=== PATIENT | male | born 1950 | race Caucasian/White ===

== ENCOUNTER → 2017-06-25 | Day surgery (SDC) | payer MEDICARE ==
[2017-06-24 11:57] VITALS: BMI 30.7
--- NOTE | 2017-06-24 18:57 | HP ---
HISTORY OF PRESENT ILLNESS: Mr. Estrella presents for evaluation of what really seems to be right lo wer extremity L4-L5 radiculopathy with profound foot drop on the right and some minor weakness and k nee extension. He started to have some other similar radicular pains in the left lower extremity, b ut no weakness today and he has occasional numbness in the lateral right lower extremity below the k nee. He has been evaluated by several neurosurgeons, neurologist, and pain management physician, al l of which have not been able to offer much help and feels that he has some type of undiagnosed poly neuropathy or idiopathic polyneuropathy. He has an MRI from [place] and CT, they reveals to me m ay be borderline moderate foraminal stenosis to the right at L4-L5, much lesser at L5. He does have profound foraminal stenosis at L4 on the left with some mild to moderate stenosis foraminal at L5 o n the left. He also has a CT scan from [place] that reveals far lateral disk herniation at L4 on the right, which I think does impact the exiting nerve root at that level, but should very well acc ount for some of the symptoms that he has been experiencing. PAST MEDICAL HISTORY: Coronary arterial disease, diabetes, hypertension, hyperlipidemia. CURRENT MEDICATIONS: Lisinopril, TriLipix, metformin, Crestor, Levemir, Humalog, Lyrica, clonazepam , aspirin, and ICAPS. PAST SURGICAL HISTORY: CABG x4. ALLERGIES: No known drug allergies. PHYSICAL EXAMINATION: Patient is alert and oriented x3. Gait is severely altered. He does have a profound foot drop on the right lower extremity with 3/5 strength to dorsiflexion and he is only abl e to dorsiflex about just short of neutral. His sensory exam is mostly intact. ASSESSMENT: Lumbar radiculopathy and right lower extremity weakness. PLAN: Discussed case with Dr. Arteaga who reviewed imaging and ultimately advocated for an right L4, right L5 facetectomy, foraminotomy. He explained to the patient the risks, benefits, alternatives o f the procedure. The patient expressed understanding and would like to move forward with surgery as discussed. I do believe the patient is mentally competent and capable of making medical decisions for himself and we will move forward with surgery as planned. This is Adriel Heath PA-C, dictating Femi Arteaga MD
[~2017-06-25] MED LIST: Acetaminophen/Codeine 30-300mg Tablet ONE; Bupivacaine HCl 0.5%/Epinephrine 1:200,000/PF 30 ml Vial ONE; Fentanyl 100 MCG/2 ML VIAL ONE; Glycopyrrolate 0.2 MG/ML 5 ML SYRINGE ONE; Ketorolac Tromethamine 30 MG/ML VIAL ONE; Lidocaine 2% PF 10 ML AMP (For Epidural Use) ONE; Midazolam HCl 2 mg/2 ml Vial ONE; Ondansetron HCl/PF 4 MG/2 ML Vial ONE; PHENYLEPHRINE-NS 100 MCG/ML 10 ML SYRINGE ONE; Propofol 200 MG/20 ML VIAL ONE; Sodium Chloride 0.9% 10 ML ONE; Thrombin 5000 UNITS/5 ML VIAL ONE; ePHEDrine/0.9% NaCl/PF SYRINGE 50 mg/10 ml ONE
--- OUTSIDE RECORDS SUMMARY | 2017-06-25 05:55 | XMS | Clinical Summary ---
:1950 Author Organization [facility] Address [address] [place] [id number] Phone Care Team Providers Name Role Phone , Primary Care Provider Unavailable Allergies Not on File Current Medications Not on file Active Problems Not on file Social History Tobacco Use Types Packs/Day Years Used Date Never Assessed Sex Assigned at Date Recorded Not on file Last Filed Vital Signs Not on file Plan of Treatment Not on file Results Not on filefrom Last 3 Months
[2017-06-25 06:43] LABS: Hematocrit 47.4 % (42.0-52.0); Mean Platelet Volume 8.7 fL (7.4-10.4); Red Blood Cell (RBC) Count 5.41 mill/uL (4.70-6.10); White Blood Cell (WBC) Count 8.3 thou/uL (4.8-10.8)
[2017-06-25 07:02] LABS: Anion Gap 16 mmol/L (10-20); BUN (Urea Nitrogen) 14 mg/dL (8.4-25.7); Calc. Creatinine Clearance 104 mL/min (70-130); Calcium 10.2 mg/dL (7.8-10.44); Carbon Dioxide 20 mmol/L (23-31); Chloride 103 mmol/L (98-107); Estimated GFR-MDRD 89
--- NOTE | 2017-06-25 08:54 | OP ---
DATE OF PROCEDURE: 06/25/2017 SURGEON: Femi Arteaga M.D. DIRECTOR FIXED INCOME: Adriel Heath PA-C INDICATION: Pain. DIAGNOSIS: Lumbar radiculopathy. PROCEDURE: Right L4-5 decompression, facetectomy, and foraminotomy. ANESTHESIA: General. TECHNIQUE: The patient was brought into the operating room and placed under general anesthesia. He was flipped from a supine to a prone position on the operating room table. A linear incision was p lanned over the L4-L5 segment. After prepping and draping and after an appropriate operative pause, the incision was created. The soft tissues were swept right of midline. A self-retaining retracto r was placed in the wound for optimal exposure. After confirming the appropriate level with C-arm f luoroscopy, high-speed cutting drill bit as well as 2, 3 and 4-mm Kerrisons were then used to perfor m a laminectomy and facetectomy over the exiting L4 nerve root until the L4 nerve root was well-deco mpressed. The wound was irrigated. Hemostasis was maintained throughout. The wound was then close d in anatomic layers and a pressure dressing was applied. There were no known procedural complicati ons.
--- NOTE | 2017-06-26 09:06 | EKG ---
Test Reason : PREOP Blood Pressure : / mmHG Vent. Rate : 087 BPM Atrial Rate : 087 BPM P-R Int : 156 ms QRS Dur : 100 ms QT Int : 364 ms P-R-T Axes : 026 047 042 degrees QTc Int : 438 ms Normal sinus rhythm Inferior infarct , age undetermined Possible Anterolateral infarct , age undetermined Abnormal ECG No previous ECGs available Confirmed by CRISTIANE SOLANO ([id number]) on 06/26/2017 9:05:36 AM Referred By: COREY Confirmed By:CRISTIANE SOLANO
== END ==
LOC: SDC 05:52
PROVIDERS: ATTEND Neurological Surgery
PROC: 01NB0ZZ Release Lumbar Nerve, Open Approach (ICD-10-PCS; principal; 2017-06-25)
DX: M54.16 Radiculopathy, lumbar region (principal); M21.371 Foot drop, right foot; I25.10 Atherosclerotic heart disease of native coronary artery without angina pectoris; E11.9 Type 2 diabetes mellitus without complications; M19.90 Unspecified osteoarthritis, unspecified site; I10 Essential (primary) hypertension; Z79.82 Long term (current) use of aspirin; Z79.4 Long term (current) use of insulin; Z79.899 Other long term (current) drug therapy; Z95.1 Presence of aortocoronary bypass graft; Z95.818 Presence of other cardiac implants and grafts
CPT/HCPCS: 36416; 76001; 80048; 85027; 93005; 93010; J0670; J1885; J2001; J2250; J2405; J2704; J3010

== ENCOUNTER 2017-10-15 14:38 | Outpatient (CLI) | payer MEDICARE ==
[2017-10-15 15:35] LABS: Estimated GFR-MDRD - POC Greater than 90
[2017-10-15] MEDS ORDERED: Gadobenate Dimeglumine 529 MG/1 ML (20ML VIAL) ONE (16:06)
--- NOTE | 2017-10-15 16:20 | MRI ---
NONCONTRAST CERVICAL SPINE MRI 10/15/17 No prior comparison. INDICATION: Cervical radiculopathy, neck pain. Bilateral upper extremity radiculopathy. FINDINGS: There is degenerative hypertrophy at C1-2 level which does efface the ventral CSF space, although no proximal cord compromise. C2-3: No high grade central canal or neural foraminal stenosis. C3-4: No high grade central canal or right femoral stenosis. There is left uncinate process hypertrop hy and moderate left facet hypertrophy with associated moderate left foraminal stenosis. C4-5: There is a right asymmetric disc osteophyte complex with moderate narrowing of the right aspect of the vertebral canal with right hemicord flattening. No high grade foraminal stenosis. C5-6: There is extensive disc extrusion, large in volume, with a prominent protrusion present at the level of disc space and extensive cephalad and caudal extrusion components which traverse the C5 and C6 segments. At the C5 level, the extrusion is predominantly right subarticular in location and at th e C6 level, within the right subarticular and medial right foraminal zone. At the level of the C5-6 d isc space, the protrusion component is bilobed spanning the transverse diameter of the vertebral juan l. There is resultant severe cord compression. The compressed cord does reveal increased intramedulla ry T2 signal indicating compressive edema and/or component of developing myelomalacia. There is moder ate biforaminal stenosis at C5-6. The cephalad component of the extrusion does encroach upon the medi al right neural foramen with impingement upon the right C6 nerve root, and the inferior extrusion com ponent impinges the traversing right C7 nerve root. C7-T1 level reveals no high grade stenosis or neural foraminal stenosis. IMPRESSION: Extensive disc extrusion spanning the craniocaudal extent of C5 and C6 with severe cord compromise an d associated cord edema. Prominent associated foraminal compromise, as well as nerve root impingement also present. Telephone call of findings placed to patient's neurosurgeon, Mike Arteaga, at time of interpretation, 1 605 hours, 10/15/17. Code CR POS: [facility]
--- NOTE | 2017-10-15 17:00 | MRI ---
LUMBAR SPINE MRI WITH AND WITHOUT CONTRAST: 10/15/17 CLINICAL HISTORY: Lumbar radiculopathy, low back pain. Reference made to CT, 06/12/17. FINDINGS: Vertebral body heights are preserved as are disc space heights of the lumbar spine. There is degenera tive narrowing of the incidentally imaged lower thoracic disc spaces. Multilevel mild to moderate fac et osteoarthritis is present bilaterally within the lumbar spine. There is evidence of prior posterio r decompression centered at the L4-5 level. No acute marrow edema. Conus medullaris is normal in morp hology terminating at the L1 level. L5-S1: No significant central canal stenosis. There is mild biforaminal narrowing on the basis of dis c osteophyte and facet hypertrophy. L4-5: There is evidence of a right hemilaminectomy. Associated enhancing signal is compatible with ep idural fibrosis which does encase the right L4 and 5 nerve roots. Mild to moderate bilateral neural f oraminal stenosis is present There is mild narrowing of the central canal. L3-4: There is broad based disc bulge at L3-4. There is a disc bulge with mild effacement of the vent ral thecal sac. There is mild right and mild to moderate left foraminal stenosis. L2-3: There is mild effacement of the ventral thecal sac due to mild disc bulge. No high grade forami nal stenosis. L1-2: No significant central canal stenosis. The neural foramina are patent. IMPRESSION: Postoperative lumbar spine with prominent epidural fibrosis at the right aspect of L4-5 thecal sac, a nd encasing the right exiting L4 and traversing L5 nerve roots. There is multilevel degenerative changes outlined above. POS: [facility]
== END 2017-10-15 14:39 | disposition home or self-care (01) ==
LOC: MRI 14:38
PROVIDERS: ATTEND Neurological Surgery
DX: M54.12 Radiculopathy, cervical region (principal); M54.16 Radiculopathy, lumbar region; M47.896 Other spondylosis, lumbar region; G96.19 Other disorders of meninges, not elsewhere classified
CPT/HCPCS: 72141; 72158; A9579

== ENCOUNTER 2017-10-22 07:15 | Day surgery (SDC) | payer MEDICARE ==
[2017-10-21 11:28] VITALS: BMI 29.8
--- NOTE | 2017-10-21 17:14 | HP ---
HISTORY OF PRESENT ILLNESS: Mr. Estrella is known to us for prior lumbar spine procedure, he presents now with what he describes to us as three-year history of progressive upper extremity weakness, musc le atrophy, and altered sensation. He has had this evaluated by several neurologists in other [facility] and diagnosed to have several conditions including CIDP and until now had not had an MRI performed o f his cervical spine. He now has one from [place] that reveals an extraordinarily large disk dominik iation at C5-C6 with severe spinal cord impingement and underlying T2 signal change. It is very like ly the reason that he is having these symptoms. PAST MEDICAL HISTORY: Significant for coronary arterial disease, diabetes, hypertension, and hyperli pidemia. CURRENT MEDICATIONS: Lisinopril, Trilipix, metformin, Crestor, Levemir, Humalog, Lyrica, clonazepam, aspirin, and ICaps. PAST SURGICAL HISTORY: CABG x4 and lumbar diskectomy. ALLERGIES: No known drug allergies. PHYSICAL EXAMINATION: GENERAL: Patient is alert and oriented x3. 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 ASSESSMENT: Cervical myelopathy. PLAN: Dr. Arteaga met with the patient, reviewed imaging and ultimately advocated for C5-C6 ACDF. He explained to the patient the risks, benefits, alternatives of the procedure. The patient expressed u nderstanding and would like to move forward with surgery as discussed. I do believe the patient is m entally competent and capable of making medical decisions for himself. We will move forward with remigio cherry as planned.
[2017-10-22] MEDS ORDERED: Fentanyl 100 MCG/2 ML VIAL ONE (08:50)
[2017-10-22] MEDS ORDERED: Midazolam HCl 2 mg/2 ml Vial ONE (08:50)
[2017-10-22 08:53] LABS: #Basophils 0.1 thou/uL (0.0-0.2); #Eosinphils 0.4 thou/uL (0.0-0.7); #Lymphocytes 3.6 thou/uL (1.20-3.40); #Neutrophils 4.3 thou/uL (1.40-6.50); %Eosinophils 3.8 % (0.0-10.0); %Lymphocytes 38.8 % (21.0-51.0); %Monocytes 10.2 % (0.0-10.0); %Neutrophils 46.3 % (42.0-75.0); Hemoglobin 15.9 g/dL (14.0-18.0); Mean Corpuscular HGB CONC 33.8 g/dL (32.0-36.0); Mean Corpuscular Hemoglobin 29.6 pg (27.0-31.0); Mean Corpuscular Volume 87.5 fl (80.0-94.0); Mean Platelet Volume 8.6 fL (7.4-10.4); Platelet Count 251 thou/uL (130-400); RBC Distribution Width 13.2 % (11.5-14.5); Red Blood Cell (RBC) Count 5.38 mill/uL (4.70-6.10); White Blood Cell (WBC) Count 9.3 thou/uL (4.8-10.8)
[2017-10-22] MEDS ORDERED: CEFAZOLIN/Water 2 GM/20 ML SYRINGE ONE ×2 (09:16→13:04)
[2017-10-22 09:17] LABS: Anion Gap 15 mmol/L (10-20); BUN (Urea Nitrogen) 12 mg/dL (8.4-25.7); Calc. Creatinine Clearance 115 mL/min (70-130); Calcium 9.7 mg/dL (7.8-10.44); Carbon Dioxide 21 mmol/L (23-31); Chloride 105 mmol/L (98-107); Estimated GFR-MDRD Greater than 90; Glucose 90 mg/dL (80-115); Sodium 137 mmol/L (136-145)
[2017-10-22] MEDS ORDERED: Ketorolac Tromethamine 30 MG/ML VIAL ONE (11:25)
--- NOTE | 2017-10-22 11:43 | OP ---
DATE OF PROCEDURE: 10/22/2017 SURGEON: Femi Arteaga M.D. SEPTIC TECHNICIAN: Adriel Heath PA-C. INDICATION: Prevent neurologic decline. DIAGNOSIS: Cervical spondylitic myelopathy. PROCEDURE: Anterior cervical discectomy and fusion at C5-6. ANESTHESIA: General. TECHNIQUE: The patient was brought into the operating room and placed under general anesthesia. He was placed on the table in the supine position. His head was maintained in neutral as was his neck a lignment. A small linear incision was planned over the lateral aspect of the neck on the right. Aft er prepping and draping and after an appropriate operative pause, the incision was created. The unde rlying platysma muscle was identified and incised. A blunt tissue plane anterior to the sternocleido mastoid muscle was used to gain access to the prevertebral space. Self-retaining retractors were marlene stacy in the wound for optimal exposure. After confirming the appropriate level with C-arm fluoroscopy large anterior osteophytes were removed. We then removed all the disk material within the disk spac e. We then removed disk material that was posteriorly and superiorly behind the body of C5. We also removed posterior osteophytes. After complete decompression, a 7 mm lordotic PEEK cage packed with allograft and autograft material was placed within the interbody space. Wound was irrigated. Hemost asis was maintained throughout. The wound was then closed in anatomic layers and a pressure dressing was applied. There were no known procedural complications.
--- NOTE | 2017-10-24 00:18 | EKG ---
Test Reason : PREOP Blood Pressure : / mmHG Vent. Rate : 097 BPM Atrial Rate : 097 BPM P-R Int : 150 ms QRS Dur : 098 ms QT Int : 354 ms P-R-T Axes : 019 042 053 degrees QTc Int : 449 ms Normal sinus rhythm Inferior infarct (cited on or before 25-JUN-2017) Possible Anterolateral infarct (cited on or before 25-JUN-2017) Abnormal ECG When compared with ECG of 25-JUN-2017 06:47, No significant change was found Confirmed by Pool XIONG ([id number]) on 10/24/2017 12:17:49 AM Referred By: LISBETH Confirmed By:Pool XIONG
== END 2017-10-22 14:00 | disposition home or self-care (01) ==
LOC: SDC 07:15
PROVIDERS: ATTEND Neurological Surgery
PROC: 0RG10A0 Fusion of Cervical Vertebral Joint with Interbody Fusion Device, Anterior Approach, Anterior Column, Open Approach (ICD-10-PCS; principal; 2017-10-22)
PROC: 0RT30ZZ Resection of Cervical Vertebral Disc, Open Approach (ICD-10-PCS; 2017-10-22)
DX: M47.12 Other spondylosis with myelopathy, cervical region (principal); M50.022 Cervical disc disorder at C5-C6 level with myelopathy; I25.10 Atherosclerotic heart disease of native coronary artery without angina pectoris; E11.9 Type 2 diabetes mellitus without complications; I10 Essential (primary) hypertension; E78.5 Hyperlipidemia, unspecified; Z79.82 Long term (current) use of aspirin; Z79.4 Long term (current) use of insulin; Z79.899 Other long term (current) drug therapy; Z95.1 Presence of aortocoronary bypass graft; Z98.890 Other specified postprocedural states
CPT/HCPCS: 36415; 36416; 76001; 80048; 85025; 93005; 93010; J1885; J2250; J3010

== ENCOUNTER 2017-10-30 12:40 | Outpatient (CLI) | payer MEDICARE ==
--- NOTE | 2017-10-30 14:09 | RAD ---
FOUR VIEWS OF THE RIGHT KNEE: History: Leg pain after back surgery. FINDINGS: Four views of the right knee shows no evidence of acute fracture or dislocation. Mild osteophytes are seen in the patellofemoral compartment. No knee effusion is seen. Surgical clips are seen along the medial aspect of the knee. IMPRESSION: Mild right knee osteoarthritis without acute osseous abnormality. POS: [facility]IL[facility]
--- NOTE | 2017-10-30 14:17 | RAD ---
2 VIEWS RIGHT TIBIA AND FIBULA: Date: 10/30/17 COMPARISON: None. HISTORY: Leg pain after surgery. FINDINGS: Two views of the right tibia/fibula show no evidence of acute fracture or dislocation. Surgical clips are seen on the medial aspect of the leg, likely from prior saphenous vein harvest. Mild degenerativ e change is seen in the right knee. IMPRESSION: No evidence of acute osseous abnormality. POS: CECILIA
--- NOTE | 2017-10-30 14:19 | RAD ---
3 VIEWS RIGHT ANKLE: Date: 10/30/17 COMPARISON: None. HISTORY: Right ankle pain after back surgery. FINDINGS: Three views of the right ankle show no evidence of acute fracture or dislocation. Surgical clips are seen adjacent to the medial malleolus. No significant degenerative change is seen in the ankle. Mild degenerative changes are seen in the mid foot. IMPRESSION: 1. No significant ankle abnormality. 2. Mild mid foot degenerative change. POS: [facility]
--- NOTE | 2017-10-30 14:33 | RAD ---
THREE VIEWS OF THE RIGHT FOOT: Comparison: None. History: Right foot and leg pain after back surgery. FINDINGS: Three views of the right foot shows no evidence of acute fracture or dislocation. Mild degenerative c hanges are seen in the mid foot. No other degenerative changes are seen. IMPRESSION: Mild right foot and midfoot degenerative change without acute osseous abnormality. POS: CECILIA
== END 2017-10-30 12:41 | disposition home or self-care (01) ==
LOC: TBSIIMAG 12:40
PROVIDERS: ATTEND Neurological Surgery
DX: M79.606 Pain in leg, unspecified (principal); M19.071 Primary osteoarthritis, right ankle and foot; M17.11 Unilateral primary osteoarthritis, right knee

== ENCOUNTER 2017-11-27 11:05 | Outpatient (CLI) | payer MEDICARE ==
--- NOTE | 2017-11-27 13:10 | RAD ---
AP AND LATERAL CERVICAL SPINE: History: M54.2 cervicalgia. Follow up. Comparison: Cervical spine MRI 10-15-17 FINDINGS: The open mouth odontoid view is normal. ACDF at C5-6 without disc migration. IMPRESSION: Normal post-operative appearance. POS: [facility]
== END 2017-11-27 11:06 | disposition home or self-care (01) ==
LOC: TBSIIMAG 11:05
PROVIDERS: ATTEND Neurological Surgery
DX: M54.2 Cervicalgia (principal); Z98.890 Other specified postprocedural states
CPT/HCPCS: 72040